=== PATIENT | male | born 1995 | race Asian ===

== ENCOUNTER 2017-04-07 23:59 | Emergency (ER) | payer OTHER ==
--- NOTE | 2017-04-08 00:11 | EDPHY ---
H & P Time Seen by Provider: 04/08/17 00:06 HPI/ROS: 21-year-old male presents complaining of rash that began yesterday and now today is all over his body, even in his mouth. He has no prior history of chickenpox and did not have the chickenpox vaccine. Review of systems As per [facility] General no fever no chills no weakness HEENT no eye pain no eye discharge. No eye redness, positive sore throat Respiratory no cough, no shortness of breath Cardiac no chest pain, no peripheral edema GI no abdominal pain, no diarrhea, no constipation, no nausea, no vomiting no flank pain, no hematuria, no dysuria Musculoskeletal no myalgias, no joint pain Heme no easy bruising, no easy bleeding Endo no polyuria, no polydipsia Skin positive rashes, no pruritus Neuro no syncope, no dizziness, no headaches Psych is no suicidal ideation, no homicidal ideation Past Medical/Surgical History: Noncontributory Social History: Denies alcohol or drug use Smoking Status: Current every day smoker Physical Exam: 21-year-old male alert and oriented vital signs stable febrile to 39.5 Atraumatic normocephalic Extraocular muscles intact, anicteric Oropharynx dry mucosa erythematous, no exudate Neck supple Lungs clear to auscultation bilaterally Heart rapid rate regular rhythm Abdomen normoactive bowel sounds soft nontender Extremities no cyanosis clubbing or edema Skin Vesicular rash multiple lesions with vesicles on an erythematous base No lymphangitic streaks no purulent drainage Constitutional: Initial Vital Signs Temperature (C) 39.5 C H 04/08/17 00:11 Heart Rate 101 H 04/08/17 00:11 Respiratory Rate 20 04/08/17 00:11 Blood Pressure 156/82 H 04/08/17 00:11 O2 Sat (%) 96 04/08/17 00:11 O2 Delivery Mode Room Air Allergies/Adverse Reactions: No Known Allergies Allergy (Unverified 04/08/17 00:11) Home Medications: Medication Instructions Recorded Valacyclovir HCl [Valtrex] 1,000 mg PO TID #21 tab 04/08/17 Medical Decision Making ED Course/Re-evaluation: Patient seen and evaluated for rash, fever Rash is vesicular with erythematous base Differential diagnosis Chickenpox Impression Chickenpox Patient given IV fluids, acetaminophen 1 g p.o. for fever, acyclovir 800 mg p.o. and tordol 30 mg ivp for fever. Plan Chickenpox instructions Prescription for Valtrex 1 g p.o. three times daily x7 days Return for signs of pneumonia, severe head or neck pain, confusion, or inability to swallow - Data Points Laboratory Results: Laboratory Results 04/08/17 00:35 04/08/17 00:35 04/08/17 04/08/17 04/08/17 Unknown 00:35 00:35 WBC RBC Hgb Hct MCV MCH MCHC RDW Plt Count MPV Neut % (Auto) Lymph % (Auto) Heard % (Auto) Eos % (Auto) Baso % (Auto) Nucleat RBC Rel Count Absolute Neuts (auto) Absolute Lymphs (auto) Absolute Monos (auto) Absolute Eos (auto) Absolute Basos (auto) Absolute Nucleated RBC Immature Gran % Immature Gran # Sodium 136 mEq/L mEq/L (134-144) Potassium 4.1 mEq/L mEq/L (3.5-5.2) Chloride 98 mEq/L mEq/L (97-110) Carbon Dioxide 25 mEq/l mEq/l (22-31) Anion Gap 13 mEq/L mEq/L (8-16) BUN 12 mg/dL mg/dL (7-23) Creatinine 1.1 mg/dL mg/dL (0.7-1.3) Estimated GFR > 60 Glucose 118 mg/dL H mg/dL (70-100) Calcium 8.7 mg/dL mg/dL (8.5-10.4) Total Bilirubin 0.5 mg/dL mg/dL (0.1-1.4) AST 29 IU/L IU/L (17-59) ALT 34 IU/L IU/L (21-72) Alkaline Phosphatase 52 IU/L IU/L (38-126) Total Protein 6.9 g/dL g/dL (6.3-8.2) Albumin 4.0 g/dL g/dL (3.5-5.0) Group A Strep Screen NEGATIVE (NEGATIVE) Group A Strep DNA Pending 04/08/17 00:35 WBC 4.12 10^3/uL 10^3/uL (3.80-9.50) RBC 5.02 10^6/uL 10^6/uL (4.40-6.38) Hgb 15.6 g/dL g/dL (13.7-17.5) Hct 44.1 % % (40.0-51.0) MCV 87.8 fL fL (81.5-99.8) MCH 31.1 pg pg (27.9-34.1) MCHC 35.4 g/dL g/dL (32.4-36.7) RDW 11.5 % % (11.5-15.2) Plt Count 89 10^3/uL L 10^3/uL (150-400) MPV 10.5 fL fL (8.7-11.7) Neut % (Auto) 55.3 % % (39.3-74.2) Lymph % (Auto) 29.9 % % (15.0-45.0) Heard % (Auto) 14.1 % H % (4.5-13.0) Eos % (Auto) 0.0 % L % (0.6-7.6) Baso % (Auto) 0.7 % % (0.3-1.7) Nucleat RBC Rel Count 0.0 % % (0.0-0.2) Absolute Neuts (auto) 2.28 10^3/uL 10^3/uL (1.70-6.50) Absolute Lymphs (auto) 1.23 10^3/uL 10^3/uL (1.00-3.00) Absolute Monos (auto) 0.58 10^3/uL 10^3/uL (0.30-0.80) Absolute Eos (auto) 0.00 10^3/uL L 10^3/uL (0.03-0.40) Absolute Basos (auto) 0.03 10^3/uL 10^3/uL (0.02-0.10) Absolute Nucleated RBC 0.00 10^3/uL 10^3/uL (0-0.01) Immature Gran % 0.0 % % (0.0-1.1) Immature Gran # 0.00 10^3/uL 10^3/uL (0.00-0.10) Sodium Potassium Chloride Carbon Dioxide Anion Gap BUN Creatinine Estimated GFR Glucose Calcium Total Bilirubin AST ALT Alkaline Phosphatase Total Protein Albumin Group A Strep Screen Group A Strep DNA Medications Given: Discontinued Medications Acetaminophen (Tylenol 160mg/5ml Oral Liquid) 1,000 mg PO EDNOW ONE Stop: 04/08/17 00:19 Last Admin: 04/08/17 00:26 Dose: Not Given Acetaminophen (Tylenol) 1,000 mg PO EDNOW ONE Stop: 04/08/17 00:25 Last Admin: 04/08/17 00:26 Dose: 1,000 mg Acyclovir (Acyclovir) 800 mg PO EDNOW ONE Stop: 04/08/17 00:24 Last Admin: 04/08/17 00:31 Dose: 800 mg Sodium Chloride (Ns) 1,000 mls @ 0 mls/hr IV ONCE ONE PRN Reason: Wide Open Stop: 04/08/17 00:24 Last Admin: 04/08/17 00:31 Dose: 1,000 mls Sodium Chloride (Ns) 1,000 mls @ 0 mls/hr IV ONCE ONE PRN Reason: Wide Open Stop: 04/08/17 00:49 Last Admin: 04/08/17 00:57 Dose: 1,000 mls Ketorolac Tromethamine (Toradol) 30 mg IVP EDNOW ONE Stop: 04/08/17 01:22 Last Admin: 04/08/17 01:29 Dose: 30 mg Departure - Departure Disposition: Home, Routine, Self-Care Clinical Impression: Chicken pox Condition: Good Instructions: Chickenpox (ED) Referrals: Patient,NotPresent [Primary Care Provider] - As per Instructions [facility] [Provider Group] - As per Instructions Prescriptions: Valacyclovir HCl [Valtrex] 1,000 mg PO TID #21 tab
[2017-04-08] MEDS ORDERED: ACETAMINOPHEN 160 MG/5 ML UDCUP PO ONE (00:18)
[2017-04-08] MEDS ORDERED: ACETAMINOPHEN 500 MG TAB ONE (00:20)
[2017-04-08] MEDS ORDERED: ACYCLOVIR 400 MG TAB PO ONE (00:23)
[2017-04-08] MEDS ORDERED: NS 1,000 ML IV ONE ×2 (00:23→00:48)
[2017-04-08] MEDS ORDERED: ACETAMINOPHEN 325 MG TAB PO ONE (00:24)
[2017-04-08] MEDS ORDERED: ACYCLOVIR 400 MG PREPACK#4 BTL TAKEHOME ONE (00:27)
[2017-04-08 00:42] LABS: ADD DIFF? NO; ADD MORPH? NO; ADD SCAN? YES; FRAGMENT RBC FLAG 0 (0-99); HEMATOCRIT 44.1 % (40.0-51.0); HEMOGLOBIN 15.6 g/dL (13.7-17.5); LEFT SHIFT FLG 0 (0-99); LIPEMIA HEMOLYSIS FLAG 90 (0-99); MEAN CELL HEMOGLOBIN 31.1 pg (27.9-34.1); MEAN CELL HEMOGLOBIN CONCENTR. 35.4 g/dL (32.4-36.7); MEAN CELL VOLUME 87.8 fL (81.5-99.8); MEAN PLATELET VOLUME 10.5 fL (8.7-11.7); PLATELET CLUMPS FLAG 0 (0-99); PLATELET COUNT 89 10^3/uL (150-400); RED BLOOD CELL COUNT 5.02 10^6/uL (4.40-6.38); RED CELL DISTRIBUTION WIDTH 11.5 % (11.5-15.2)
[2017-04-08 00:43] LABS: ATYPICAL LYMPHOCYTE FLAG 300 (0-99)
[2017-04-08 00:57] LABS: ALANINE AMINOTRANSFERASE 34 IU/L (21-72); ALKALINE PHOSPHATASE 52 IU/L (38-126); ANION GAP 13 mEq/L (8-16); ASPARTATE AMINOTRANSFERASE 29 IU/L (17-59); BILIRUBIN,TOTAL 0.5 mg/dL (0.1-1.4); CALCIUM 8.7 mg/dL (8.5-10.4); CARBON DIOXIDE 25 mEq/l (22-31); CHLORIDE 98 mEq/L (97-110); CREATININE 1.1 mg/dL (0.7-1.3); GLOMERULAR FILTRATION RATE > 60; GLUCOSE 118 mg/dL (70-100); POTASSIUM 4.1 mEq/L (3.5-5.2); SODIUM 136 mEq/L (134-144); TOTAL PROTEIN 6.9 g/dL (6.3-8.2)
[2017-04-08 01:03] LABS: SCAN NEGATIVE
[2017-04-08 01:16] VITALS: RESP 16
[2017-04-08] MEDS ORDERED: KETOROLAC 30 MG/1 ML SDV IVP ONE (01:21)
[2017-04-08 02:12] VITALS: BP 126/65; PULSE 88; TEMP 100.2; O2SAT 96
== END 2017-04-08 02:13 | disposition home or self-care (01) ==
LOC: CED 23:59
DX: B01.9 Varicella without complication (principal); F17.200 Nicotine dependence, unspecified, uncomplicated
CPT/HCPCS: 80053-PO; 85025-PO; 87880-PO; 96374; J1885